=== PATIENT | male | born 1985 | race Caucasian/White ===

== ENCOUNTER 2019-02-10 18:57 | Emergency (ER) | payer OTHER, SELFPAY ==
[2019-02-10 18:57] VITALS: BP 125/79; PULSE 112; RESP 18; TEMP 36.9; O2SAT 96; BMI 30.1
[2019-02-10] MEDS: Ketorolac 60 MG/2 ML Vial IM (20:36)
[2019-02-10] MEDS: predniSONE 20 MG Tablet 60 MG PO (20:38)
--- NOTE | 2019-02-10 20:58 | ED.VIS.GEN ---
History of Present Illness Chief Complaint: Back Informant: Patient Onset: Today Narrative: Worsening left lower back pain radiating to the back of his knee today. Is dealing with symptoms past 18 months. Diagnosed with piriformis syndrome followed by [facility] pain management. Reports she had an injection 4 months ago with no relief. He is placed on gabapentin 300 mg at night. No loss of bowel or bladder control. No injuries. States was on a plane sitting on and off therefore this is reaggravated. States he is trying to find physicians in this area. Is alternating Tylenol and Motrin, last dose of Motrin was earlier this morning. No history of gastric ulcers or kidney injury. Prior similar symptoms: Yes Past Medical History - Allergies and Home Meds Allergies/Adverse Reactions: Allergies No Known Allergies Allergy (Verified 02/10/19 19:01) Primary Care Physician: My Clark MD [STAFF PHYSICIAN] - 3-5 Days Pal Qiu DO [STAFF PHYSICIAN] - 5-7 Days Care Physician,No Primary [Primary Care Provider] - Smoking Status: Never smoker Review of Systems General: Denies: Chills, Fever, Sweats Eyes: Denies: Visual changes - bilaterally, Diplopia ENT: Denies: Rhinorrhea, Sore throat Cardiovascular: Denies: Chest pain, Palpitations Respiratory: Denies: Dyspnea, Cough, Dyspnea on exertion Gastrointestinal: Denies: Abdominal pain, Nausea, Vomiting, Diarrhea, Melena, Hematochezia Genitourinary: Denies: Dysuria, Hematuria, Frequency Musculoskeletal: Reports: Back pain. Denies: Extremity Pain Skin: Denies: Rash, Wounds Neurological: Denies: Headache, Weakness, Numbness Physical Exam Vital Signs/Narrative: Vital Signs Temp Pulse Resp BP Pulse Ox 02/10/19 18:57 98.4 F 112 H 18 125/79 H 96 Inital Vital Signs reviewed: Yes General: Well nourished, Well developed, - - Walking in room for comfort. Able to flex his hip with no pain. There is mild uncomfortable. Head: Normocephalic, Atraumatic Eyes: Perrl, EOMI ENT: Moist mucous membranes, No rhinorrhea Neck: Supple, Nontender Cardiovascular: Regular rate, Regular rhythm, No murmurs Respiratory: No distress, CTA bilaterally, Chest nontender Abdomen: Soft, Nontender, Nondistended, Normal bowel sounds Back: Normal Inspection, - - Tender palpation along left piriformis. Extremities: Nontender, No edema Skin: Normal color, No rash Neurological: Alert, Oriented x3, Cranial nerves II-XII grossly intact, Normal Strength, Normal Sensation Psychological: Normal affect, Normal Mood Diagnostic/Tx/Re-eval - Medical Decision Making Patient uncomfortable, discussed sciatica symptoms. He has no cauda equina symptoms. He is on gabapentin discussed with patient go up to 3 times a day. Will continue Tylenol Motrin is given Toradol injection ED. Will try steroids to see will help with his symptoms. He is given subcu morphine due to having a ride for comfort. He is given follow-up with pain management and PCP in the area. ED Disposition - Plan for ED Patient: Disposition: Home or Assisted Living Diagnosis: Sciatica of left side Instructions: ED Sciatica Prescriptions: MethylPREDNISolone DosePak [Medrol DosePak] 4 mg PO UD #1 box Referrals: Care Physician,No Primary [Primary Care Provider] - My Clark MD [STAFF PHYSICIAN] - 3-5 Days Pal Qiu DO [STAFF PHYSICIAN] - 5-7 Days Additional Instructions: Continue Tylenol and Motrin alternating. Take steroid as prescribed. Take your gabapentin up to 3 times per day. Follow-up with physicians given.
[2019-02-10] MEDS: Morphine 4 MG/ML Syringe SC (21:27)
[2019-02-10 21:30] VITALS: BP 141/100; PULSE 95; RESP 15; O2SAT 95
[2019-02-10 21:57] VITALS: BP 129/77; PULSE 62; RESP 17; O2SAT 98
== END 2019-02-10 21:58 | disposition home or self-care (01) ==
PROVIDERS: Emergency Provider Emergency Medicine
DX: M54.42 Lumbago with sciatica, left side (principal)
CPT/HCPCS: 96372; 99282